=== PATIENT | female | born 1985 | race Caucasian/White ===

== ENCOUNTER 2016-09-27 18:35 | Emergency (ER) | payer OTHER, MEDICAID ==
[~2016-09-27] VITALS: Ht 162.6 cm; Wt 59.0 kg
[~2016-09-27 18:35] MED LIST: METH4TAB3 PO; NAPR500T6 PO; OXYC-541 PO
[2016-09-27 18:38] VITALS: Ht 162.6 cm; Wt 59.0 kg
--- OUTSIDE RECORDS SUMMARY | 2016-09-27 18:39 | XMS REPORT | Continuity of Care Document ---
Author Author [facility] Organization [facility] Address Unknown Phone Unavailable Support Name Relationship Address Phone NERY LIM MD Caregiver [address] [place] [id number] Unavailable JERRY WILKINSIN Next Of Kin [address] [place] [address] Insurance Providers Guarantor SeferinoReginaldo M Address [address] [place] [address] Email DENIED 09-10-16 Payer [facility] Community Plan Policy Number [id number] Subscriber's Name Reginaldo Gentile Relationship 18 Self Effective Date 16 Expiration Date 16 Payer [facility] Policy Number [id number] Subscriber's Name Reginaldo Gentile Relationship 18 Self Group Number [id number] Advance Directives Directive Response Recorded Date/Time Advanced Directives Type None 09/10/16 3:49pm Chief Complaint and Reason for Visit Chief Complaint Chest Pain Reason for Visit Pericarditis Problems Active Problems Medical Problem Onset Date Status Antepartum bleeding, second trimester 05/19/2014 Acute delivery delivered Unknown with history of caesarean section, antepartum 09/01/2014 Acute Past Problems Medical Problem Onset Date Acute costochondritis Unknown Pericarditis Unknown Medications Current Home Medications Medication Dose Units Route Directions Days Qty Instructions Start Date Methylprednisolone (Medrol) 4 Mg Tab.ds.pk 4 Mg Oral As Directed 5 Days 09/10/16 Naproxen 500 Mg Tablet.dr 500 Mg Oral Twice A Day 09/10/16 Oxycodone Hcl/Acetaminophen (Oxycodone-Acetaminophen 5-325) 5-325 Tablet 0.5 Tab Oral Every 4 Hours as needed for Pain 09/03/16 Past Home Medications Medication Directions Ordered Status Diphenhydramine Hcl (Benadryl) 25 Mg Capsule, 2 Cap Oral Bedtime 02/10/16 Discontinued Ibuprofen 800 Mg Tablet, 800 Mg Oral Every 8 Hours as needed for Pain Discontinued Oxycodone Hcl/Acetaminophen (Oxycodon-Acetaminophen 7.5-325) 1 Tab Tablet, 1-2 Tab Oral Every 4 Hours as needed for Pain 09/01/14 Discontinued Progesterone,Micronized (Progesterone) 200 Mg Capsule, 250 Ml Intramusc 1 Week 08/29/14 Discontinued Social History Social History Problem Response Recorded Date/Time Onset Date Status Hx Substance Use No 09/10/2016 4:00pm Not Applicable Not Applicable Hx Alcohol Use No 09/10/2016 4:00pm Not Applicable Not Applicable Has the pt used tobacco in the last 12 months Yes 02/10/2016 8:24am Not Applicable Not Applicable Query Response Start Date Stop Date Smoking Status Current every day smoker Hospital Discharge Instructions No hospital discharge instructions. Plan of Care Discharge Date 09/10/16 8:21pm Disposition 01 DISCHARGED HOME, SELF-CARE Condition at Discharge Stable Instructions/Education Provided Acute Pericarditis (ED) Prescriptions See Medication Section Additional Instructions/Education 1. Take steroid pack as prescribed 2. Follow up with Albino in clinic Functional Status No functional status results. Allergies, Adverse Reactions, Alerts No known allergies. Immunizations Query Response on File Recorded Date/Time Hx Influenza Vaccination Y AUG 2015 02/10/16 8:24am Hx Pneumococcal Vaccination No 02/10/16 8:24am Hx Tetanus, Diptheria, Pertussis Y 08/08/14 08/30/14 5:49am Hx Influenza Vaccination Y AUG 2015 02/10/16 8:24am Hx Tetanus, Diptheria, Pertussis Y 08/08/14 08/30/14 5:49am Influenza Vaccine Hx 201509/10/16 4:00pm Tdap Vaccine Hx 01/22/16 02/10/16 7:41am Vital Signs Acute Vital Signs Vital Response Date/Time Temperature (Fahrenheit) 97.5 deg F (96.8 - 99.1) 09/10/2016 7:55pm Temperature (Calculated Celsius) 36.74250 degrees C (36.0 - 37.3) 09/10/2016 7:55pm Pulse Rate (adult) 79 bpm (60 - 100) 09/10/2016 8:12pm Respiratory Rate 16 breaths/min (10 - 20) 09/10/2016 8:12pm O2 Sat by Pulse Oximetry 97 % (90 - 100) 09/10/2016 8:15pm Blood Pressure 113/64 mm Hg 09/10/2016 8:15pm Height (Feet) 5 feet 09/10/2016 3:49pm Height (Inches) 5.00 inches 09/10/2016 3:49pm Weight (Kilograms) 60.300 kg 09/10/2016 3:49pm Body Mass Index (BMI) 22.0 09/10/2016 3:49pm Results Laboratory Results Test Name Result Units Flags Reference Collection Date/Time Result Date/ Time Comments Total Bilirubin 0.50 MG/DL 0.20-1.30 09/03/2016 3:57pm 09/03/2016 4: 13pm Alkaline Phosphatase 72 U/L 38-126 09/03/2016 3:57pm 09/03/2016 4:13pm Total Protein 7.1 G/DL 6.3-8.2 09/03/2016 3:57pm 09/03/2016 4:13pm Albumin 4.4 G/DL 3.5-5.0 09/03/2016 3:57pm 09/03/2016 4:13pm Globulin 2.7 G/DL 2.4-3.6 09/03/2016 3:57pm 09/03/2016 4:13pm Albumin/Globulin Ratio 1.6 RATIO 1.1-2.2 09/03/2016 3:57pm 09/03/2016 4 :13pm Aspartate Amino Transf (AST/SGOT) 23 U/L 14-36 09/03/2016 3:57pm 2016 4:13pm Alanine Aminotransferase (ALT/SGPT) 26 U/L 9-52 09/03/2016 3:57pm 09/03 4:13pm White Blood Count 5.2 T/MM3 4.5-11.0 09/10/2016 4:28pm 09/10/2016 4: 49pm Red Blood Count 4.26 M/MM3 4.00-5.20 09/10/2016 4:28pm 09/10/2016 4: 49pm Hemoglobin 13.0 GM/DL 12-16 09/10/2016 4:28pm 09/10/2016 4:49pm Hematocrit 38.8 % 36-46 09/10/2016 4:28pm 09/10/2016 4:49pm Mean Corpuscular Volume 91.1 UM3 80-100 09/10/2016 4:09/10/2016 4: 49pm Mean Corpuscular Hemoglobin 30.5 UUG 26-34 09/10/2016 4:2016 4:49pm Mean Corpuscular Hemoglobin Concent 33.5 GM/DL 31-37 09/10/2016 4:09/10/2016 4:49pm RDW Standard Deviation 38.5 FL 36.9-50.2 09/10/2016 4:09/10/2016 4 :49pm Platelet Count 190 T/MM3 130-400 09/10/2016 4:09/10/2016 4:49pm Mean Platelet Volume 10.1 UM3 9.4-12.4 09/10/2016 4:09/10/2016 4: 49pm Neutrophils (%) (Auto) 47.8 % 33-66 09/10/2016 4:09/10/2016 4: 49pm Lymphocytes (%) (Auto) 44.6 % 23-45 09/10/2016 4:09/10/2016 4: 49pm Monocytes (%) (Auto) 5.9 % 0-9.0 09/10/2016 4:09/10/2016 4:49pm Eosinophils (%) (Auto) 1.3 % 0-4 09/10/2016 4:09/10/2016 4:49pm Basophils (%) (Auto) 0.2 % 0-2 09/10/2016 4:09/10/2016 4:49pm Immature Granulocyte % (Auto) 0.2 % 0.0-0.5 09/10/2016 4:2016 4:49pm Absolute Neutrophils (auto) 2.5 T/MM3 1.8-7.7 09/10/2016 4:2016 4:49pm Absolute Lymphocytes (auto) 2.3 T/MM3 1-4.8 09/10/2016 4:2016 4:49pm Absolute Monocytes (auto) 0.3 T/MM3 0-0.8 09/10/2016 4:09/10/2016 4:49pm Absolute Eosinophils (auto) 0.1 T/MM3 0-0.5 09/10/2016 4:282016 4:49pm Absolute Basophils (auto) 0.0 T/MM3 0-0.2 09/10/2016 4:28pm 09/10/2016 4:49pm Absolute Immature Granulocyte (auto 0.01 T/MM3 0.00-0.03 09/10/2016 4: 28pm 09/10/2016 4:49pm Icterus Index < 2 0-7 09/10/2016 4:09/10/2016 5:10pm Chemistry Specimen Hemolysis < 15 0-25 09/10/2016 4:pm 09/10/2016 5 :10pm 0-25: Specimen Exhibited No Hemolysis. Turbidity < 20 0-20 09/10/2016 4:pm 09/10/2016 5:10pm Sodium Level 145 MEQ/L H 134-144 09/10/2016 4:28pm 09/10/2016 4:58pm Potassium Level 4.1 MEQ/L 3.6-5 09/10/2016 4:09/10/2016 4:58pm Chloride Level 108 MEQ/L H 98-107 09/10/2016 4:28pm 09/10/2016 4:58pm Carbon Dioxide Level 24 MEQ/L 22-30 09/10/2016 4:28pm 09/10/2016 4: 58pm Anion Gap 13 MEQ/L 5-15 09/10/2016 4:28pm 09/10/2016 4:58pm Blood Urea Nitrogen 19.0 MG/DL H 7-17 09/10/2016 4:28pm 09/10/2016 4: 58pm Creatinine 0.7 MG/DL 0.7-1.2 09/10/2016 4:28pm 09/10/2016 4:58pm BUN/Creatinine Ratio 27 RATIO H 6-26 09/10/2016 4:28pm 09/10/2016 4: 58pm Glomerular Filtration Rate Calc 99 09/10/2016 4:2809/10/2016 4: 58pm Glucose Level 80 MG/DL 65-110 09/10/2016 4:28pm 09/10/2016 5:34pm Calculated Osmolality 280 MOSM/KG 261-280 09/10/2016 4:28pm 09/10/2016 5:34pm Calcium Level 9.4 MG/DL 8.4-10.2 09/10/2016 4:28pm 09/10/2016 4:58pm Troponin I < 0.012 ng/ml 0-0.12 09/10/2016 4:28pm 09/10/2016 5:10pm Troponin values with a difference of 55% increase from orginal troponin value represent a true biological DELTA value. (%increase Calc=Orginal Troponin value, divided by subsequent Troponin value, multiplied by 100) Procedures Procedure Status Date Provider(s) Chest x-ray 2vw frontal&latl Completed 09/03/16 Comprehen metabolic panel Completed 09/03/16 Assay of troponin quant Completed 09/03/16 Complete cbc w/auto diff wbc Completed 09/03/16 Electrocardiogram tracing Completed 09/03/16 Ther/proph/diag inj iv push Completed 09/03/16 Tx/pro/dx inj new drug addon Completed 09/03/16 Emergency dept visit Completed 09/03/16 881966"INJECTION, HYDROMORPHONE, UP TO 4 MG" Completed 09/03/16 [id number]"INJECTION, ONDANSETRON HYDROCHLORIDE, PER 1 MG" Completed 09/03/16 Encounters Encounter Location Arrival/Admit Date Discharge/Depart Date Attending Provider Departed Emergency Room [facility] 09/10/16 3:42pm 09/10/16 8: 21pm NERY LIM MD Departed Emergency Room [facility] 09/03/16 3:43pm 09/03/16 5: 35pm MARIANO SHEPHERD DO Recent Diagnosis
--- NOTE | 2016-09-27 18:49 | NUR ---
PROVIDER DR LIM IN TO SEE PATIENT.
[2016-09-27] MEDS ORDERED: NORMAL SALINE 1,000 ML IV ONE (18:56)
[2016-09-27] MEDS ORDERED: ASPIRIN 81 MG CHEWABLE TABLET PO ONE (19:00)
[2016-09-27] MEDS ORDERED: ONDANSETRON 4mg/2ml INJECTION IV ONE (19:00)
[2016-09-27] MEDS ORDERED: MORPHINE SULFATE 2 MG SYRINGE IV ONE (19:00)
[2016-09-27] MEDS ORDERED: NITROGLYCERIN 0.4 MG SUBLINGUAL TABLET SL PRN (19:00)
[2016-09-27] MEDS ORDERED: IBUP-1724 PO (19:01)
[2016-09-27] MEDS ORDERED: PRED20TA PO (19:01)
[2016-09-27 19:13] LABS: BASOPHILS % (AUTO) 0.1 % (0-2); HCT - HEMATOCRIT 38.5 % (36-46); HGB - HEMOGLOBIN 13.1 GM/DL (12-16); IMMATURE GRANULOCYTE # (AUTO) 0.01 T/MM3 (0.00-0.03); IMMATURE GRANULOCYTE % (AUTO) 0.1 % (0.0-0.5); LYMPHOCYTES # (AUTO) 2.3 T/MM3 (1-4.8); LYMPHOCYTES % (AUTO) 25.6 % (23-45); MEAN CORPUSCULAR HGB 30.8 UUG (26-34); MEAN CORPUSCULAR VOLUME 90.6 UM3 (80-100); MEAN PLATELET VOLUME 9.8 UM3 (9.4-12.4); MONOCYTES # (AUTO) 0.4 T/MM3 (0-0.8); MONOCYTES % (AUTO) 4.9 % (0-9.0); NEUTROPHILS #(AUTO)-ABSOLUTE 6.1 T/MM3 (1.8-7.7); NEUTROPHILS % (AUTO) 69.3 % (33-66); RED BLOOD COUNT 4.25 M/MM3 (4.00-5.20); WBC - WHITE BLOOD COUNT 8.9 T/MM3 (4.5-11.0)
[2016-09-27 19:23] LABS: ALBUMIN 4.5 G/DL (3.5-5.0); ALBUMIN/GLOBULIN RATIO 1.6 RATIO (1.1-2.2); ALKALINE PHOSPHATASE 68 U/L (38-126); ALT (SGPT) 22 U/L (9-52); ANION GAP 13 MEQ/L (5-15); AST (SGOT) 18 U/L (14-36); BUN/CREATININE RATIO 27 RATIO (6-26); CALCIUM 9.5 MG/DL (8.4-10.2); CHLORIDE 108 MEQ/L (98-107); CO2 - CARBON DIOXIDE 22 MEQ/L (22-30); CREATININE 0.6 MG/DL (0.7-1.2); GLOMERULAR FILTRATION RATE 118; GLUCOSE 98 MG/DL (65-110); POTASSIUM 3.9 MEQ/L (3.6-5); SODIUM 143 MEQ/L (134-144); TOTAL PROTEIN 7.3 G/DL (6.3-8.2)
[2016-09-27 19:31] LABS: PROBNP 46 PG/ML (0-175)
[2016-09-27 19:32] LABS: BLOOD, URINE NEGATIVE (NEGATIVE); COLOR,URINE YELLOW (YELLOW); LEUKOCYTE ESTERASE ,URINE NEGATIVE (NEGATIVE); NITRITE,URINE NEGATIVE (NEGATIVE); UROBILINOGEN,URINE 0.2 EU/DL (NORMAL)
[2016-09-27 19:47] LABS: PROTHROMBIN TIME 10.9 SEC (9.31-12.49)
--- NOTE | 2016-09-27 20:08 | NUR ---
PROVIDER DR LIM IN TO SEE PATIENT.
--- NOTE | 2016-09-27 20:23 | NUR ---
TO XRAY PER CART.
--- NOTE | 2016-09-27 20:26 | NUR ---
BACK FROM XRAY
--- NOTE | 2016-09-27 21:29 | ERPDOC ---
Departure Disposition Decision Date: Sep 27, 2016 Disposition Decision Time: 21:33 Disposition: 01 DISCHARGED HOME, SELF-CARE Impression Impression Impression: Primary Impression: Pericarditis Severity: Moderate Condition: Improved Seen By: Physician only Patient Instructions: Acute Pericarditis (ED), Chronic Pericarditis (ED) Problems/Meds/Labs Reviewed?: Yes Medications reviewed and manag: Yes Additional Instructions: Ultrasound be completed tomorrow. Follow-up with cardiology on . Medrol Dosepak as prescribed. You have a small prescription of Percocet. This is a short-term medication, not intended to be a long-term treatment. Follow up care ordered?: Yes Mental Status: Alert, Oriented Scripts Methylprednisolone (Medrol) 4 Mg Tab.ds.pk 4 MG PO DIRECTED for 7 Days, #1 PACK Prov: NERY LIM MD 09/27/16 Trazodone HCl (Trazodone HCl) 50 Mg Tablet 1-2 TAB PO HS Y for INSOMNIA, #60 TAB Take 1 tablet, by mouth, one time a day (at BEDTIME). Prov: NERY LIM MD 09/27/16 Oxycodone HCl/Acetaminophen (Percocet 5-325 mg Tablet) 5-325 Tablet 1 TAB PO TID for PAIN, #15 TAB Take 1 tablet, by mouth, 4 times a day. Prov: NERY LIM MD 09/27/16 HPI - Chest Pain General Chief Complaint: Chest Pain Stated Complaint: CHEST PAIN & BURNING Time Seen by Provider: 18:43 HPI - Chest Pain Initial Comments 30-year-old female with history of pericarditis. Patient was initially diagnosed roughly a month ago, given a Medrol Dosepak and had about 2 weeks of relief. She redeveloped pain, went back to see cardiology and was given prednisone while she is waiting to see a tablet tester. The prednisone was not working, the pain is significant, has kept her from sleeping very well for several days. She is very emotional and frustrated. 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 The relationship is suffering between the 2 of them. She became tearful as we were speaking. Aspirin Treatment Today: provided at home Allergies: Coded Allergies: No Known Allergies (Unverified , 09/03/16) Past History Past Medical History Cardiac: other Surgical History Reproductive/: Vaccines Hx Influenza Vaccination: Yes (AUG 2015) Hx Pneumococcal Vaccination: No Hx Tetanus, Diptheria, Pertuss: Yes (08/08/14) Social History Does patient use chewing tobac: No # of Packs/Tins per Day: 1 # of Years: 14 Second Hand Exposure: Yes Substance Use Type: does not use Alcohol Intake: none Marital Status: Current Occupational Status: employed Record Review Pertinent history updated: Yes Review of Systems Constitutional Constitutional: difficulty falling asleep Cardiovascular Cardiac: chest pain, dyspnea on exertion Neurological General: see HPI Psychiatric Psychiatric: see HPI All other Systems All Other Systems: Reviewed and Negative Physical Exam General General Nourishment: well nourished, well developed, appears stated age Distress Description Chest pain Vitals and Pain First Documented Vital Signs Date Time Temp Pulse Resp B/P Pulse Ox O2 Delivery O2 Flow Rate FiO2 09/27/16 18:38 97.8 84 16 121/77 100 Room Air Weight: Kilograms: 59.000 Height (feet): 5 Height (inches): 4.00 Triage Pain Scale: Normal Exams: Head: Normocephalic w/o trauma Chest/Resp: Clear all araujo, with good airflow, and symmetry bilaterally CV: Regular rate and rhythm, without murmur or gallop, Pulses 2+ all extremities, capillary refill, <2 seconds all ext., no pedal edema noted Abdomen: Bowel sounds positive, soft, non-tender, non-distended, no hepatosplenomegaly, masses or bruits noted Neurologic: Patient is alert, and oriented, cranial nerves, motor/sensory/ cerebellar, exams w/o gross deficits, to observation Psychiatric: Patient exhibits, appropriate attention, emotion and affect Psychiatric (brief) Comments Patient did become frustrated and tearful, but recovered this on her own. Differential Diagnoses Considering: Other (DVT, pulmonary was, pneumonitis, pericarditis, anxiety somatizations) Progress Results/Orders Orders Procedure Category Date Status Time Cbc W/Auto LAB 09/27/16 Complete Diff-Reflex Manual 18:56 Cmp - Comprehensive LAB 09/27/16 Complete Metabolic 18:56 Probnp LAB 09/27/16 Complete 18:56 Troponin I W LAB 09/27/16 Complete Hemolysis Index 18:56 INR LAB 09/27/16 Complete 18:56 Ua, Dip Wreflex LAB 09/27/16 Complete [facility] 18:56 D-Dimer LAB 09/27/16 Complete 18:56 EKG EKG 09/27/16 Taken 18:56 Chest, Pa & Lateral RAD 09/27/16 Taken 18:56 Iv Lock (Ed Only) EDM 09/27/16 Transmitted 18:56 Normal Saline (Normal PHA 09/27/16 Complete Saline Iv) 18:56 Aspirin (Asa) PHA 09/27/16 Complete 19:00 Nitroglycerin PHA 09/27/16 In Process (Nitrostat) 19:00 Morphine Sulfate PHA 09/27/16 Complete (Morphine) 19:00 Ondansetron Inj PHA 09/27/16 Complete (Zofran) 19:00 Methylprednisolone PHA 09/27/16 Complete Sod Succ (Solu-Medrol 19:00 LAB 09/27/16 Complete Qualitative, Urine 19:27 Esr - Sedimentation LAB 09/27/16 In Process Rate - Ams 20:36 C-Reactive Protein - LAB 09/27/16 Complete CRP 21:12 Lab Results Laboratory Tests Test 09/27/16 19:08 09/27/16 19:26 White Blood Count 8.9T/MM3 Red Blood Count 4.25M/MM3 Hemoglobin 13.1GM/DL Hematocrit 38.5% Mean Corpuscular Volume 90.6UM3 Mean Corpuscular Hemoglobin 30.8UUG Mean Corpuscular Hemoglobin Concent 34.0GM/DL RDW Standard Deviation 40.2FL Platelet Count 237T/MM3 Mean Platelet Volume 9.8UM3 Immature Granulocyte % (Auto) 0.1% Neutrophils (%) (Auto) 69.3% Lymphocytes (%) (Auto) 25.6% Monocytes (%) (Auto) 4.9% Eosinophils (%) (Auto) 0.0% Basophils (%) (Auto) 0.1% Absolute Immature Granulocyte (auto 0.01T/MM3 Absolute Neutrophils (auto) 6.1T/MM3 Absolute Lymphocytes (auto) 2.3T/MM3 Absolute Monocytes (auto) 0.4T/MM3 Absolute Eosinophils (auto) 0.0T/MM3 Absolute Basophils (auto) 0.0T/MM3 Erythrocyte Sedimentation Rate Pending Prothromb Time International Ratio 1.00 D-Dimer < 150NG/ML Turbidity < 20 Sodium Level 143MEQ/L Potassium Level 3.9MEQ/L Chloride Level 108MEQ/L Carbon Dioxide Level 22MEQ/L Anion Gap 13MEQ/L Blood Urea Nitrogen 16.0MG/DL Creatinine 0.6MG/DL Glomerular Filtration Rate Calc 118 BUN/Creatinine Ratio 27RATIO Glucose Level 98MG/DL Calculated Osmolality 276MOSM/KG Calcium Level 9.5MG/DL Total Bilirubin 0.70MG/DL Icterus Index < 2 Aspartate Amino Transf (AST/SGOT) 18U/L Alanine Aminotransferase (ALT/SGPT) 22U/L Alkaline Phosphatase 68U/L Troponin I < 0.012ng/ml C-Reactive Protein < 5MG/L ZV-Sfq-O-Type Natriuretic Peptide 46PG/ML Total Protein 7.3G/DL Albumin 4.5G/DL Globulin 2.8G/DL Albumin/Globulin Ratio 1.6RATIO Chemistry Specimen Hemolysis < 15 Urine Collection Type Voided-not cc-midstr Urine Color Yellow Urine Turbidity Clear Urine pH 5.5 Urine Specific [place] 1.025 Urine Protein Negative Urine Glucose (UA) Negative Urine Ketones 1+ Urine Blood Negative Urine Nitrite Negative Urine Bilirubin Negative Urine Urobilinogen 0.2EU/DL Urine Leukocyte Esterase Negative Urinalysis Comment Microscopic not ind. Urine Test Negative Medications Current ED Medications Sodium Chloride (Normal Saline IV) 1,000 ml @ 1,000 mls/hr Q1H ONCE IV Last administered on 09/27/16 19:09; Start 09/27/16 at 18:56; Stop 09/27/16 at 19:55 ; Status DC Aspirin (ASA) 324 mg O ONCE PO Last administered on 09/27/16 19:09; Start at 19:00; Stop 09/27/16 at 19:01; Status DC Nitroglycerin (Nitrostat) 0.4 mg Q5MIN PRN SL CHEST PAIN; Start 09/27/16 at 19: 00 Morphine Sulfate (Morphine) 2 mg O ONCE IV Last administered on 09/27/16 19: 09; Start 09/27/16 at 19:00; Stop 09/27/16 at 19:01; Status DC Ondansetron HCl (Zofran) 4 mg O ONCE IV Last administered on 09/27/16 19:10; Start 09/27/16 at 19:00; Stop 09/27/16 at 19:01; Status DC Methylprednisolone Sodium Succinate (Solu-Medrol) 125 mg O ONCE IV Last administered on 09/27/16t 19:10; Start 09/27/16 at 19:00; Stop 09/27/16 at 19:01 ; Status DC Progress Progress Labs returned normal, sedimentation rate is sent for processing, but will not return until tomorrow. Patient was given IV fluid, morphine 2 mg IV and Zofran 4 mg IV. This did bring her some immediate relief. She was also given Solu- Medrol 125 mg IV. I did call and speak with Dr. Posada. We have some uncertainty as to whether this is an inflammatory pericarditis, or if there is also some emotional component to it. From the interview today with her, I certainly do see that she is stressed. The steroids may be causing some of that as well. As we discussed options, she would like to take the Medrol Dosepak again and she felt it worked the best for her. We discussed the risks with the steroids, and I agreed. She was given a very small prescription of Percocet to use over the next couple days. We discussed that this is not a long-term medication, that she is not going to be given refills, and that I have discussed this with Dr. Posada. She will follow-up tomorrow and have her cardiac ultrasound done as scheduled. She will then see cardiology for follow- up on . NERY LIM MD Sep 27, 2016 21:29
[2016-09-27] MEDS ORDERED: OXYC1TAB8 PO (21:37)
[2016-09-27] MEDS ORDERED: TRAZ-170 PO (21:37)
[2016-09-27] MEDS ORDERED: METH4TAB3 PO (21:37)
[2016-09-27] MEDS ORDERED: TRAZODONE 50 MG TABLET PO ONE (21:45)
[2016-09-27] MEDS ORDERED: OXYCODONE/APAP 5mg/325mg TABLET PO ONE (21:45)
[2016-09-27 21:52] VITALS: BP 121/77; PULSE 77; RESP 16; TEMP 97.8; O2SAT 97
--- NOTE | 2016-09-28 08:07 | DI ---
INDICATION: ITS.REASON: chest pain PROCEDURE: CHEST 2-VIEWS UPRIGHT (PA \T\ LAT) Encounter: Initial COMPARISON: September 03, 2016 FINDINGS: The lungs are clear without evidence of focal abnormal airspace opacity. There is no pleural effusion or pneumothorax. The heart size, mediastinal contours and pulmonary vascularity are within normal limits. There is no significant skeletal abnormality. IMPRESSION: No acute cardiopulmonary disease. .
== END 2016-09-27 21:52 | disposition home or self-care (01) ==
LOC: ED 19:35
DX: I31.9 Disease of pericardium, unspecified (principal)
CPT/HCPCS: 71020; 80053; 81003; 81025; 83880; 84484; 85025; 85379; 85610; 85652; 86140; 93005; 96374; 96375; 99284; J2405; J2930; J7030